=== PATIENT | male | born 1955 | race Caucasian/White ===

== ENCOUNTER → 2021-01-19 | Outpatient (CLI) | payer BC ==
--- NOTE | 2021-01-20 02:28 | MR ---
EXAMINATION TYPE: MR brain wo con DATE OF EXAM: 01/19/2021 COMPARISON: None HISTORY: Vertigo, Facial Numbness Multiplanar multiecho imaging of the brain without contrast. Ventricles have normal size. There is no mass effect nor midline shift. There is no sign of intracran ial hemorrhage. Diffusion images show no evidence of an acute infarct. Brainstem is intact. There is no evidence of orbital mass. Mixon-white matter structures have fairly n ormal signal pattern. There is no evidence of cerebral edema. There is no evidence of a posterior fos sa mass. Corpus callosum appears intact. Sella turcica appears normal. IMPRESSION: MR scan of the brain appears normal for age.
== END | disposition home or self-care (01) ==
LOC: RADMRIMAIN 20:27
PROVIDERS: ATTEND Family Medicine
DX: R42 Dizziness and giddiness (principal); R20.0 Anesthesia of skin
CPT/HCPCS: 70551

== ENCOUNTER 2022-10-23 18:32 | Emergency (ER) | payer BC ==
[2022-10-23 19:15] VITALS: RESP 18
--- NOTE | 2022-10-23 20:43 | ED ---
General Adult HPI - General Chief complaint: Extremity Injury, Upper Stated complaint: left arm injury Time Seen by Provider: 10/23/22 19:35 Source: patient, RN notes reviewed Mode of arrival: ambulatory Limitations: no limitations - History of Present Illness Initial comments: 67-year-old male presents emergency department chief complaint of left elbow swelling 1 day. He states that 5 weeks ago he fell on his elbow and had a similar thing happen. He underwent x-ray at that time which was negative. He reports that he had improvement in the swelling but he noticed it again today. He states that he has had no new injury. Denies fever, chills. He reports full range of motion at the elbow. - Related Data Allergies Allergy/AdvReac Type Severity Reaction Status Date / Time No Known Allergies Allergy Verified 10/23/22 19:15 Review of Systems ROS Statement: Those systems with pertinent positive or pertinent negative responses have been documented in the HPI. ROS Other: All systems not noted in ROS Statement are negative. Past Medical History Past Medical History: Hypertension History of Any Multi-Drug Resistant Organisms: None Reported Past Surgical History: Heart Catheterization With Stent Additional Past Surgical History / Comment(s): CABG Past Psychological History: No Psychological Hx Reported Smoking Status: Never smoker Past Alcohol Use History: None Reported Past Drug Use History: None Reported General Exam Limitations: no limitations General appearance: alert, in no apparent distress Head exam: Present: atraumatic, normocephalic, normal inspection Eye exam: Present: normal appearance ENT exam: Present: normal exam, mucous membranes moist Neck exam: Present: normal inspection. Absent: tenderness, meningismus, lymphadenopathy Respiratory exam: Present: normal lung sounds bilaterally. Absent: respiratory distress, wheezes, rales, rhonchi, stridor Cardiovascular Exam: Present: regular rate, normal rhythm, normal heart sounds. Absent: systolic murmur, diastolic murmur, rubs, gallop, clicks Extremities exam: Present: normal inspection, full ROM, normal capillary refill, other (bursal swelling of the left elbow without erythema or tenderness). A bsent: tenderness, pedal edema, joint swelling, calf tenderness Back exam: Present: normal inspection Neurological exam: Present: alert, oriented X3, CN II-XII intact Psychiatric exam: Present: normal affect, normal mood Skin exam: Present: warm, dry, intact, normal color. Absent: rash Course Vital Signs 10/23/22 10/23/22 19:11 20:52 Temperature 98.5 F 97.5 F L Pulse Rate 73 74 Respiratory 18 18 Rate Blood Pressure 119/70 128/75 O2 Sat by Pulse 99 99 Oximetry Medical Decision Making - Medical Decision Making Was pt. sent in by a medical professional or institution (, [facility], [facility], urgent care, hospital, or [facility]...) When possible be specific @ -No Did you speak to anyone other than the patient for history (EMS, parent, family, police, friend...)? What history was obtained from this source @ -No Did you review nursing and triage notes (agree or disagree)? Why? @ -I reviewed and agree with nursing and triage notes Were old charts reviewed (outside hosp., previous admission, EMS record, old EKG, old radiological studies, urgent care reports/EKG's, [facility] records)? Report findings @ -No old charts were reviewed Differential Diagnosis (chest pain, altered mental status, abdominal pain women, abdominal pain men, vaginal bleeding, weakness, fever, dyspnea, syncope, headache, dizziness, GI bleed, back pain, seizure, CVA, palpatations, mental health, musculoskeletal)? @ -Differential Musculoskeletal Muscular strain, contusion, ligament sprain, fracture, arthritis, septic arthritis, bursitis, cellulitis, muscle spasm, nerve compression, DVT, arterial occlusion, herpes zoster, electrolyte abnormality, tumor.... This is not meant to be in all inclusive list EKG interpreted by me (3pts min.). @ -None X-rays interpreted by me (1pt min.). @ -None done CT interpreted by me (1pt min.). @ -None done U/S interpreted by me (1pt. min.). @ -None done What testing was considered but not performed or refused? (CT, X-rays, U/S, labs)? Why? @ -XR considered but there has been no new trauma and clinical presentation consistent with bursitis What meds were considered but not given or refused? Why? @ -None Did you discuss the management of the patient with other professionals (professionals i.e. [facility] P[facility]ja, TA[facility], lab, RT, psych nurse, licensed clinical social worker, corporate fitness program coordinator, teacher, loan officer, case operator)? Give summary @ -No Was smoking cessation discussed for >3mins.? @ -No Was critical care preformed (if so, how long)? @ -No Were there social determinants of health that impacted care today? How? (Homelessness, low income, unemployed, alcoholism, drug addiction, transportation, low edu. Level, literacy, decrease access to med. care, custodial, rehab)? @ -No Was there de-escalation of care discussed even if they declined (Discuss DNR or withdrawal of care, Hospice)? DNR status @ -No What co-morbidities impacted this encounter? (DM, HTN, Smoking, COPD, CAD, Cancer, CVA, ARF, Chemo, Hep., AIDS, mental health diagnosis, sleep apnea, m orbid obesity)? @ -None Was patient admitted / discharged? Hospital course, mention meds given and route, prescriptions, significant lab abnormalities, going to OR and other pertinent info. @ -Discharged. Patient presented to emergency department chief complaint of left elbow swelling 1 day. Patient reports that he injured his elbow about 5 weeks ago and had x-rays taken at that time and has not had new trauma. He reports that his elbow swelled up this morning. Presentation consistent with bursitis, no erythema or tenderness, full ROM at the elbow. Recommended anti- inflammatories, icing. Discussed return precautions with patient and family in the room. Patient discharged in stable condition. Case discussed with my attending, Dr. Ayala. Undiagnosed new problem with uncertain prognosis? @ -No Drug Therapy requiring intensive monitoring for toxicity (Heparin, Nitro, Insul in, Cardizem)? @ -No Were any procedures done? @ -No Diagnosis/symptom? @ -olecranon bursitis Acute, or Chronic, or Acute on Chronic? @ -acute Uncomplicated (without systemic symptoms) or Complicated (systemic symptoms)? @ -uncomplicated Side effects of treatment? @ -No Exacerbation, Progression, or Severe Exacerbation? @ -No Poses a threat to life or bodily function? How? (Chest pain, [place], [place], pneumonia, PE, COPD, DKA, ARF, appy, cholecystitis, CVA, Diverticulitis, Homicidal, Suicidal, threat to staff... and all critical care pts) @ -No Disposition Clinical Impression: Bursitis Disposition: HOME SELF-CARE Condition: Stable Instructions (If sedation given, give patient instructions): Elbow Bursitis (ED) Additional Instructions: Follow up with your primary care provider. Please return to the emergency department for new or worsening symptoms. Is patient prescribed a controlled substance at d/c from ED?: No Referrals: Chrissy Santos DO [Primary Care Provider] - 1-2 days Time of Disposition: 20:43
[2022-10-23 20:57] VITALS: BP 128/75; PULSE 74; TEMP 97.5
== END 2022-10-23 20:57 | disposition home or self-care (01) ==
LOC: EC 18:32
DX: M71.9 Bursopathy, unspecified (principal); I10 Essential (primary) hypertension
CPT/HCPCS: 99282

== ENCOUNTER 2024-01-25 17:55 | Observation (INO) | payer BC, MEDICARE ==
--- NOTE | 2024-01-25 18:10 | ED ---
Dizziness HPI - General Source: patient, RN notes reviewed Mode of arrival: ambulatory Limitations: no limitations - History of Present Illness MD Complaint: dizziness <Ivory Christensen - Last Filed: 01/25/24 18:08> <Jia Nunes - Last Filed: 01/26/24 03:33> <SetswanaShy - Last Filed: 01/26/24 07:37> - General Chief Complaint: Dizziness Stated Complaint: Dizziness, SOB, Chest pain Time Seen by Provider: 01/25/24 18:05 - History of Present Illness Initial Comments: Quick Note: This is a 68-year-old male who presents to the emergency department for dizziness. States that he was ill with a sinus infection for the last couple of weeks and has recently started to become dizzy. Today he started to feel very weak and developed chest pain/pressure. He is concerned due to a history of open heart surgery and not knowing if this was a cardiac issue. Family states that he feels like he is constantly moving even when he is not. (Ivory Christensen) 68-year-old male with history of CAD presenting to the ER for chief complaint of dizziness x 1 day. States he has been ill with a sinus infection for 3 weeks and has been treated with multiple rounds of antibiotics with little relief. States he is having severe pressure under his eyes, headache, and dizziness worse with movement. Reports it feels as though the room is spinning. He has never had this before. He also reports when he got to the ER today he began having some chest pressure that he believes is likely due to anxiety. He is no longer having chest pain. He does take Brilinta. (Jia Nunes) - Related Data Home Medications Medication Instructions Recorded Confirmed Acetaminophen-Codeine 300-30mg 1 tab PO Q6H PRN 01/25/24 01/25/24 [Tylenol w/codeine #3] Albuterol Inhaler [Ventolin Hfa 2 puff INHALATION RT-Q4H PRN 01/25/24 01/25/24 Inhaler] Aspirin EC [Ecotrin Low Dose] 81 mg PO DAILY 01/25/24 01/25/24 Brimonidine Tartrate [Alphagan P 1 drop BOTH EYES BID 01/25/24 01/25/24 0.2% Ophth Soln] Brinzolamide/Brimonidine Tart 1 drop BOTH EYES BID 01/25/24 01/25/24 [Simbrinza 1%-0.2% Eye Drop] Codeine Phosphate/Guaifenesin 10 ml PO Q4H PRN 01/25/24 01/25/24 [Codeine Phosphate/Guaifenesin 10-100 mg/5 ml] Dicyclomine [Bentyl] 20 mg PO HS 01/25/24 01/25/24 Dutasteride 0.5 mg PO HS 01/25/24 01/25/24 Ezetimibe [Zetia] 10 mg PO DAILY 01/25/24 01/25/24 Fenofibrate [Lofibra] 160 mg PO HS 01/25/24 01/25/24 Fluticasone/Vilanterol [Breo 1 puff INHALATION RT-DAILY 01/25/24 01/25/24 Ellipta 100-25 Mcg Inhalr] Latanoprost [Latanoprost 0.005%] 1 drop BOTH EYES HS 01/25/24 01/25/24 Metoprolol Succinate [Metoprolol 25 mg PO HS 01/25/24 01/25/24 Succinate ER] Montelukast [Singulair] 10 mg PO HS 01/25/24 01/25/24 Omeprazole 40 mg PO DAILY 01/25/24 01/25/24 Ranolazine [Ranexa] 1,000 mg PO Q12HR 01/25/24 01/25/24 Rosuvastatin Calcium [Crestor] 40 mg PO HS 01/25/24 01/25/24 Tamsulosin [Flomax] 0.4 mg PO HS 01/25/24 01/25/24 Ticagrelor [Brilinta] 90 mg PO BID 01/25/24 01/25/24 Timolol 0.5% Ophth Soln [Timoptic 1 drop BOTH EYES DAILY 01/25/24 01/25/24 0.5% Ophth Soln] Ubidecarenone [Coenzyme Q10] 100 mg PO DAILY 01/25/24 01/25/24 clonazePAM 1.5 mg PO HS 01/25/24 01/25/24 lisinopriL [Zestril] 2.5 mg PO HS 01/25/24 01/25/24 traZODone HCL [Desyrel] 50 - 100 mg PO HS 01/25/24 01/25/24 Allergies Allergy/AdvReac Type Severity Reaction Status Date / Time No Known Allergies Allergy Verified 01/25/24 20:59 Review of Systems ROS Other: All systems not noted in ROS Statement are negative. <Ivory Christensen - Last Filed: 01/25/24 18:08> ROS Other: All systems not noted in ROS Statement are negative. <Jia Nunes - Last Filed: 01/26/24 03:33> ROS Other: All systems not noted in ROS Statement are negative. <SetswanaShy - Last Filed: 01/26/24 07:37> ROS Statement: Those systems with pertinent positive or pertinent negative responses have been documented in the HPI. Past Medical History Past Medical History: Asthma, COPD, Hypertension, Myocardial Infarction (non Q- wave) Additional Past Medical History / Comment(s): Open heart surgery History of Any Multi-Drug Resistant Organisms: None Reported Past Surgical History: Heart Catheterization With Stent Additional Past Surgical History / Comment(s): CABG Past Psychological History: No Psychological Hx Reported Smoking Status: Never smoker Past Alcohol Use History: None Reported Past Drug Use History: None Reported <Ivory Christensen - Last Filed: 01/25/24 18:08> General Exam Limitations: no limitations <Ivory Christensen - Last Filed: 01/25/24 18:08> General appearance: alert, in no apparent distress Head exam: Present: atraumatic, normocephalic, normal inspection Eye exam: Present: normal appearance, PERRL, EOMI. Absent: scleral icterus, conjunctival injection, periorbital swelling ENT exam: Present: normal exam, mucous membranes moist Neck exam: Present: normal inspection. Absent: tenderness, meningismus, lymphadenopathy Respiratory exam: Present: normal lung sounds bilaterally. Absent: respiratory distress, wheezes, rales, rhonchi, stridor Cardiovascular Exam: Present: regular rate, normal rhythm, normal heart sounds. Absent: systolic murmur, diastolic murmur, rubs, gallop, clicks GI/Abdominal exam: Present: soft, normal bowel sounds. Absent: distended, tenderness, guarding, rebound, rigid Neurological exam: Present: alert, oriented X3 Psychiatric exam: Present: normal affect, normal mood Skin exam: Present: warm, dry, intact, normal color. Absent: rash <Jia Nunes - Last Filed: 01/26/24 03:33> - General Exam Comments Initial Comments: Visual Physical Exam Vital signs reviewed General: Well-appearing, nontoxic, no acute distress. Head: Normocephalic, atraumatic Eyes: PERRLA, EOMI ENT: Airway patent Chest: Nonlabored breathing Skin: No visual rash, normal skin tone Neuro: Alert and oriented 3 Musculoskeletal: No gross abnormalities (Ivory Christensen) Course Vital Signs 01/25/24 01/25/24 01/25/24 18:04 20:58 21:47 Temperature 98.6 F 98.2 F Pulse Rate 58 L 52 L 55 L Respiratory 18 14 16 Rate Blood Pressure 104/65 126/70 131/75 O2 Sat by Pulse 100 Oximetry 01/26/24 03:24 Temperature 97.9 F Pulse Rate 55 L Respiratory 14 Rate Blood Pressure 104/69 O2 Sat by Pulse Oximetry EKG Findings - EKG Results: EKG: interpreted by ERMD (EKG reveals sinus bradycardia with no ST changes. Ventricular rate 57 bpm, KS interval 173, QRS duration 108, QT/QTc 451/445) <Jia Nunes - Last Filed: 01/26/24 03:33> Medical Decision Making <Ivory Christensen - Last Filed: 01/25/24 18:08> - Lab Data Result diagrams: 01/25/24 18:22 01/25/24 18:22 <Jia Nunes - Last Filed: 01/26/24 03:33> - Lab Data Result diagrams: 01/25/24 18:22 01/25/24 18:22 <Shy Rogesr - Last Filed: 01/26/24 07:37> - Medical Decision Making I performed the QuickNote portion of this chart. Signed Ivory Christensen PA-C. (Ivory Christensen) Was pt. sent in by a medical professional or institution ([facility], FORENSIC INVESTIGATOR, urgent care, hospital, or prison...) When possible be specific @ -No Did you speak to anyone other than the patient for history (EMS, parent, family, police, friend...)? What history was obtained from this source @ -Family supplemented history Did you review nursing and triage notes (agree or disagree)? Why? @ -I reviewed and agree with nursing and triage notes Were old charts reviewed (outside hosp., previous admission, EMS record, old EKG, old radiological studies, urgent care reports/EKG's, prison records)? Report findings @ -No old charts were reviewed Differential Diagnosis (chest pain, altered mental status, abdominal pain women, abdominal pain men, vaginal bleeding, weakness, fever, dyspnea, syncope, headache, dizziness, GI bleed, back pain, seizure, CVA, palpatations, mental health, musculoskeletal)? @ -Differential Dizziness: Benign paroxysmal positional Vertigo, Meniere's disease, otitis media, acoustic neuroma, vertebrobasilar insufficiency, cerebellar stroke, encephalitis, hypovolemic, arrhythmia, coronary artery syndrome, anemia, this is not meant to be an all-inclusive list EKG interpreted by me (3pts min.). @ -As above X-rays interpreted by me (1pt min.). @ -Chest x-ray reveals no acute process CT interpreted by me (1pt min.). @ -CT head without contrast revealed no acute intracranial process however basilar tip aneurysm not excluded, CTA revealed no acute process U/S interpreted by me (1pt. min.). @ -None done What testing was considered but not performed or refused? (CT, X-rays, U/S, labs)? Why? @ -None What meds were considered but not given or refused? Why? @ -Nitroglycerin was considered for chest pain however patient does take sildenafil Did you discuss the management of the patient with other professionals (professionals i.e. , PA, FORENSIC INVESTIGATOR, lab, RT, psych nurse, health social work professor, compound worker, teacher, commissioned fire officer, human services case manager)? Give summary @ -No Was smoking cessation discussed for >3mins.? @ -No Was critical care preformed (if so, how long)? @ -No Were there social determinants of health that impacted care today? How? (Homelessness, low income, unemployed, alcoholism, drug addiction, transport ation, low edu. Level, literacy, decrease access to med. care, intermediate, rehab)? @ -No Was there de-escalation of care discussed even if they declined (Discuss DNR or withdrawal of care, Hospice)? DNR status @ -No What co-morbidities impacted this encounter? (DM, HTN, Smoking, COPD, CAD, Cancer, CVA, ARF, Chemo, Hep., AIDS, mental health diagnosis, sleep apnea, morbid obesity)? @ -None Was patient admitted / discharged? Hospital course, mention meds given and route, prescriptions, significant lab abnormalities, going to OR and other pertinent info. @ -Patient was admitted. This is a 68-year-old male presenting with dizziness x 1 day with headache and chest pain. Vital signs within normal limits. Neuro examination is unremarkable. Patient was given IV fluids, antiemetics, and analgesics for symptom control. Lab work including CBC, CMP, coags, magnesium, troponin unremarkable. CT without contrast of head revealed questionable basilar tip aneurysm, therefore CTA was performed which revealed no acute process. Findings were discussed with patient. Upon reevaluation, patient states chest pain is worsening. Patient was given loading dose of aspirin at this time and was admitted to observation to rule out ACS due to chest pain with dizziness. Case was discussed with my ED attending Dr. Rogers. Undiagnosed new problem with uncertain prognosis? @ -No Drug Therapy requiring intensive monitoring for toxicity (Heparin, Nitro, Insulin, Cardizem)? @ -No Were any procedures done? @ -No Diagnosis/symptom? @ -Chest pain, dizziness Acute, or Chronic, or Acute on Chronic? @ -Acute Uncomplicated (without systemic symptoms) or Complicated (systemic symptoms)? @ -Complicated Side effects of treatment? @ -No Exacerbation, Progression, or Severe Exacerbation? @ -No Poses a threat to life or bodily function? How? (Chest pain, [place], [place], pneumonia, PE, COPD, DKA, ARF, appy, cholecystitis, CVA, Diverticulitis, Homicidal, Suicidal, threat to staff... and all critical care pts) @ -Yes, chest pain (Jia Nunes) Pt presented to myself by DOLORES. 68 y/o gentleman presenting for lightheadedness after suffering from a sinus infection x 5 weeks. Noted associated pressure behind his right eye. CT imaging obtained by D[facility]ES negative for acute process. While in ED pt began complaining of chest pain so planned for admission. I did go to assess the patient personally, and on my assessment, patient endorsed improvement in his lightheadedness but was more concerned about his left sided chest pain that began while in the ED and preferred to discuss this as opposed to initial presenting complaint. I reviewed initial EKG which showed no STEMI, initial troponin wnl, pt unable to recieve SL nitroglycerin as he takes Cialis, however morphine and repeat EKG ordered to ensure no new ischemic changes. Additionally, no focal deficits on neuro exam, no facial droop, slurred speech, weakness or numbness of extremities, EOM intact, visual rios grossly intact, right pupil 3-4 mm round, reactive, left pupil 2-3 mm, normal finger to nose testing, normal heel to garcia testing, no nystagmus, negative test of skew, head impulse test normal. Discussed with patient plan for admission for further evaluation of his chest pain, pt agreeable with POC. (Shy Rogers) - Lab Data Lab Results 01/25/24 01/25/24 01/25/24 Range/Units 18:22 18:22 18:22 WBC 4.1 (3.8-10.6) k/uL RBC 4.69 (4.30-5.90) m/uL Hgb 13.2 (13.0-17.5) gm/dL Hct 40.0 (39.0-53.0) % MCV 85.4 (80.0-100.0) fL MCH 28.1 (25.0-35.0) pg MCHC 32.9 (31.0-37.0) g/dL RDW 13.4 (11.5-15.5) % Plt Count 200 (150-450) k/uL MPV 7.4 Neutrophils % 66 % Lymphocytes % 22 % Monocytes % 8 % Eosinophils % 1 % Basophils % 1 % Neutrophils # 2.7 (1.3-7.7) k/uL Lymphocytes # 0.9 L (1.0-4.8) k/uL Monocytes # 0.3 (0-1.0) k/uL Eosinophils # 0.1 (0-0.7) k/uL Basophils # 0.0 (0-0.2) k/uL PT 11.8 (10.0-12.5) sec INR 1.1 (<1.2) APTT 27.3 (22.0-30.0) sec Sodium 128 L (137-145) mmol/L Potassium 4.1 (3.5-5.1) mmol/L Chloride 96 L (98-107) mmol/L Carbon Dioxide 25 (22-30) mmol/L Anion Gap 7 mmol/L BUN 13 (9-20) mg/dL Creatinine 1.05 (0.66-1.25) mg/dL Est GFR (CKD-EPI)AfAm 85 (>60 ml/min/1.73 sqM) Est GFR (CKD-EPI)NonAf 74 (>60 ml/min/1.73 sqM) Glucose 124 H (74-99) mg/dL Calcium 9.3 (8.4-10.2) mg/dL Magnesium 1.6 (1.6-2.3) mg/dL Total Bilirubin 0.6 (0.2-1.3) mg/dL AST 31 (17-59) U/L ALT 21 (4-49) U/L Alkaline Phosphatase 23 L (38-126) U/L Troponin I (0.000-0.034) ng/mL Total Protein 6.6 (6.3-8.2) g/dL Albumin 4.1 (3.5-5.0) g/dL Urine Color Urine Appearance (Clear) Urine pH (5.0-8.0) Ur Specific [place] (1.001-1.035) Urine Protein (Negative) Urine Glucose (UA) (Negative) Urine Ketones (Negative) Urine Blood (Negative) Urine Nitrite (Negative) Urine Bilirubin (Negative) Urine Urobilinogen (<2.0) mg/dL Ur Leukocyte Esterase (Negative) Influenza Type A (PCR) (Not Detectd) Influenza Type B (PCR) (Not Detectd) RSV (PCR) (Not Detectd) SARS-CoV-2 (PCR) (Not Detectd) 01/25/24 01/25/24 01/25/24 Range/Units 18:22 18:22 18:28 WBC (3.8-10.6) k/uL RBC (4.30-5.90) m/uL Hgb (13.0-17.5) gm/dL Hct (39.0-53.0) % MCV (80.0-100.0) fL MCH (25.0-35.0) pg MCHC (31.0-37.0) g/dL RDW (11.5-15.5) % Plt Count (150-450) k/uL MPV Neutrophils % % Lymphocytes % % Monocytes % % Eosinophils % % Basophils % % Neutrophils # (1.3-7.7) k/uL Lymphocytes # (1.0-4.8) k/uL Monocytes # (0-1.0) k/uL Eosinophils # (0-0.7) k/uL Basophils # (0-0.2) k/uL PT (10.0-12.5) sec INR (<1.2) APTT (22.0-30.0) sec Sodium (137-145) mmol/L Potassium (3.5-5.1) mmol/L Chloride (98-107) mmol/L Carbon Dioxide (22-30) mmol/L Anion Gap mmol/L BUN (9-20) mg/dL Creatinine (0.66-1.25) mg/dL Est GFR (CKD-EPI)AfAm (>60 ml/min/1.73 sqM) Est GFR (CKD-EPI)NonAf (>60 ml/min/1.73 sqM) Glucose (74-99) mg/dL Calcium (8.4-10.2) mg/dL Magnesium (1.6-2.3) mg/dL Total Bilirubin (0.2-1.3) mg/dL AST (17-59) U/L ALT (4-49) U/L Alkaline Phosphatase (38-126) U/L Troponin I <0.012 (0.000-0.034) ng/mL Total Protein (6.3-8.2) g/dL Albumin (3.5-5.0) g/dL Urine Color Light Yellow Urine Appearance Clear (Clear) Urine pH 6.0 (5.0-8.0) Ur Specific [place] 1.014 (1.001-1.035) Urine Protein Negative (Negative) Urine Glucose (UA) Negative (Negative) Urine Ketones Negative (Negative) Urine Blood Negative (Negative) Urine Nitrite Negative (Negative) Urine Bilirubin Negative (Negative) Urine Urobilinogen <2.0 (<2.0) mg/dL Ur Leukocyte Esterase Negative (Negative) Influenza Type A (PCR) Not Detected (Not Detectd) Influenza Type B (PCR) Not Detected (Not Detectd) RSV (PCR) Not Detected (Not Detectd) SARS-CoV-2 (PCR) Not Detected (Not Detectd) 01/26/24 Range/Units 02:00 WBC (3.8-10.6) k/uL RBC (4.30-5.90) m/uL Hgb (13.0-17.5) gm/dL Hct (39.0-53.0) % MCV (80.0-100.0) fL MCH (25.0-35.0) pg MCHC (31.0-37.0) g/dL RDW (11.5-15.5) % Plt Count (150-450) k/uL MPV Neutrophils % % Lymphocytes % % Monocytes % % Eosinophils % % Basophils % % Neutrophils # (1.3-7.7) k/uL Lymphocytes # (1.0-4.8) k/uL Monocytes # (0-1.0) k/uL Eosinophils # (0-0.7) k/uL Basophils # (0-0.2) k/uL PT (10.0-12.5) sec INR (<1.2) APTT (22.0-30.0) sec Sodium (137-145) mmol/L Potassium (3.5-5.1) mmol/L Chloride (98-107) mmol/L Carbon Dioxide (22-30) mmol/L Anion Gap mmol/L BUN (9-20) mg/dL Creatinine (0.66-1.25) mg/dL Est GFR (CKD-EPI)AfAm (>60 ml/min/1.73 sqM) Est GFR (CKD-EPI)NonAf (>60 ml/min/1.73 sqM) Glucose (74-99) mg/dL Calcium (8.4-10.2) mg/dL Magnesium (1.6-2.3) mg/dL Total Bilirubin (0.2-1.3) mg/dL AST (17-59) U/L ALT (4-49) U/L Alkaline Phosphatase (38-126) U/L Troponin I <0.012 (0.000-0.034) ng/mL Total Protein (6.3-8.2) g/dL Albumin (3.5-5.0) g/dL Urine Color Urine Appearance (Clear) Urine pH (5.0-8.0) Ur Specific [place] (1.001-1.035) Urine Protein (Negative) Urine Glucose (UA) (Negative) Urine Ketones (Negative) Urine Blood (Negative) Urine Nitrite (Negative) Urine Bilirubin (Negative) Urine Urobilinogen (<2.0) mg/dL Ur Leukocyte Esterase (Negative) Influenza Type A (PCR) (Not Detectd) Influenza Type B (PCR) (Not Detectd) RSV (PCR) (Not Detectd) SARS-CoV-2 (PCR) (Not Detectd) Disposition <Ivory Christensen - Last Filed: 01/25/24 18:08> Time of Disposition: 02:38 <Jia Nunes - Last Filed: 01/26/24 03:33> <Shy Rogers - Last Filed: 01/26/24 07:37> Clinical Impression: Chest pain Disposition: ADMITTED IP TO THIS HOSP
[2024-01-25 19:01] LABS: ALT 21 U/L (4-49); AST 31 U/L (17-59); African American GFR (CKD) 85 (>60 ml/min/1.73 sqM); Albumin 4.1 g/dL (3.5-5.0); Alkaline Phosphatase 23 U/L (38-126); Anion Gap 7 mmol/L; Blood Urea Nitrogen 13 mg/dL (9-20); Calcium 9.3 mg/dL (8.4-10.2); Carbon Dioxide 25 mmol/L (22-30); Chloride 96 mmol/L (98-107); Glucose 124 mg/dL (74-99); Magnesium 1.6 mg/dL (1.6-2.3); Non-African American GFR(CKD) 74 (>60 ml/min/1.73 sqM); Potassium 4.1 mmol/L (3.5-5.1); Sodium 128 mmol/L (137-145); Total Bilirubin 0.6 mg/dL (0.2-1.3); Total Protein 6.6 g/dL (6.3-8.2)
[2024-01-25 19:08] LABS: INR 1.1 (<1.2); Partial Thromboplastin Time 27.3 sec (22.0-30.0); Prothrombin Time 11.8 sec (10.0-12.5)
--- NOTE | 2024-01-25 19:09 | XR ---
EXAMINATION TYPE: XR chest 2V DATE OF EXAM: 01/25/2024 COMPARISON: 01/25/2024 INDICATION: Sinus infection TECHNIQUE: Frontal and lateral views of the chest are obtained. FINDINGS: The heart size is normal. Coronary artery stents are evident. Sternotomy wires are in the midline. The pulmonary vasculature is normal. The lungs are clear. IMPRESSION: 1. No acute pulmonary process. [facility], , 01/25/2024 7:06 PM
[2024-01-25] MEDS: ACETAMINOPHEN IV (For NPO) 1,000 MG in EMPTY BAG 1 BAG IVPB STA (20:43)
[2024-01-25] MEDS: ONDANSETRON 4 MG/2 ML VIAL IVP STA (20:44)
[2024-01-25] MEDS: SODIUM CHLORIDE 0.9% 1,000 ML IV STA (20:45)
--- NOTE | 2024-01-25 20:57 | CT ---
EXAMINATION TYPE: CT brain wo con DATE OF EXAM: 01/25/2024 COMPARISON: MRI 01/19/2021 INDICATION: Pt states he has had a sinus infection for the past few weeks that is not improving. pt states diziness has gotten worse. pt states he also feels lethargic and has pressure in chest. DLP: 1168.6 mGycm, Automated exposure control for dose reduction was used. CONTRAST: None CT of the brain is performed utilizing 3 mm thick sections through the posterior fossa and 3 mm thick sections through the remaining calvarium. Study is performed within 24 hours of arrival to the hosp ital. No abnormal hyperdensity is present to suggest an acute intracranial hemorrhage. No mass lesion is evident. No acute infarcts are evident. Ventricles and sulci are appropriate for the patient age. Paranasal sinuses and mastoid air cells within the [id number] are clear. In the axial plane there is some fullness of the basilar tip measuring 0.6 cm. The basilar artery its elf measures 0.4 cm. Aneurysm may be present. This is not identified on the previous MRI. This could be artifact given the lack of intravenous contrast study Additional workup with CTA or MRA is recomme nded. IMPRESSION: 1. No acute intracranial process. Follow up MRI can be performed as clinically indicated. 2. Basilar tip aneurysm is not excluded. Additional workup with CTA or MRA is recommended. [facility], , 01/25/2024 8:54 PM
[2024-01-25] MEDS: LORazepam 2 MG/ML INJ IV STA (21:43)
[2024-01-25 21:59] LABS: Appearance,Urine Clear (Clear); Bilirubin,Urine Negative (Negative); Blood,Urine Negative (Negative); Color,Urine Light Yellow; Glucose,Urine (UA) Negative (Negative); Ketones,Urine Negative (Negative); Leukocyte Esterase,Urine Negative (Negative); Nitrite,Urine Negative (Negative); Protein,Urine Negative (Negative); Specific Gravity,Urine 1.014 (1.001-1.035); Urobilinogen,Urine <2.0 mg/dL (<2.0)
[2024-01-25 22:02] LABS: Basophils % (A) 1 %; Eosinophils # (A) 0.1 k/uL (0-0.7); Eosinophils % (A) 1 %; HGB 13.2 gm/dL (13.0-17.5); Lymphocytes # (A) 0.9 k/uL (1.0-4.8); Lymphocytes % (A) 22 %; MCH 28.1 pg (25.0-35.0); MCHC 32.9 g/dL (31.0-37.0); MCV 85.4 fL (80.0-100.0); Mean Platelet Volume 7.4; Monocytes # (A) 0.3 k/uL (0-1.0); Monocytes % (A) 8 %; Neutrophils # (A) 2.7 k/uL (1.3-7.7); Neutrophils % (A) 66 %; Platelet Count 200 k/uL (150-450); RBC 4.69 m/uL (4.30-5.90); RDW 13.4 % (11.5-15.5); WBC 4.1 k/uL (3.8-10.6)
--- NOTE | 2024-01-25 22:51 | CT ---
EXAMINATION TYPE: CT angio head neck DATE OF EXAM: 01/25/2024 HISTORY: Pt states he has had a sinus infection for the past few weeks that is not improving. pt sta deonna dizziness has gotten worse. pt states he also feels lethargic and has pressure in chest. COMPARISON: None. CT DLP: 494 mGycm. Automated Exposure Control for Dose Reduction was Utilized. TECHNIQUE: CTA scan of the head and neck is performed with IV Contrast, patient injected with 100 ml mL of Isovue 370, axial images are obtained, coronal and sagittal reformatted images are reviewed. 3 D reconstructed images are created on an independent workstation and reviewed. FINDINGS: Carotid/Vascular Structures: There is three-vessel origin from the aortic arch. [id number] porfirio pheral calcified plaque right carotid bulb extends into proximal internal carotid artery without sign ificant stenosis. There is more moderate peripheral calcified plaque left carotid bulb extending into proximal internal carotid artery without significant stenosis. Patent external carotid arteries bila terally are seen. Moderate peripheral calcified plaque distal internal carotid arteries. Patent anter ior to indicating artery is seen. No linear hypodensity to suggest dissection. Vertebral arteries are codominant and patent to the basilar junction. Other: Sternal wires are partially imaged. Paranasal sinuses are grossly clear. Bilateral aphakia is seen. Multilevel spurring and disc space narrowing in the cervical spine. IMPRESSION: No significant vascular abnormality is seen. Cause of patient's symptoms is not identifi ed. NASCET criteria was used in interpretation of this exam? [facility], , 01/25/2024 10:48 PM
[2024-01-26] MEDS: LORazepam 2 MG/ML INJ IV STA (00:25)
[2024-01-26] MEDS: FAMOTIDINE 20 MG/2 ML VIAL IV STA (00:26)
[2024-01-26] MEDS: ASPIRIN 81 MG PO STA (00:27)
[2024-01-26] MEDS ORDERED: MAG HYDROX/AL HYDROX/SIMETH 30 ML CUP PO PRN (01:37)
[2024-01-26] MEDS: MORPHINE SULFATE 4 MG/ML SYRINGE IVP STA (02:00)
[2024-01-26] MEDS: ONDANSETRON 4 MG/2 ML VIAL IVP STA (02:01)
[2024-01-26] MEDS ORDERED: MORPHINE SULFATE 4 MG/ML SYRINGE IV PRN (02:35)
[2024-01-26] MEDS ORDERED: HYDROcodone/APAP 5-325MG 1 EACH TAB PO PRN (02:35)
[2024-01-26] MEDS ORDERED: ONDANSETRON 4 MG/2 ML VIAL IVP PRN (02:35)
[2024-01-26] MEDS ORDERED: NALOXONE 0.4 MG/ML 1 ML VIAL IV PRN (02:35)
[2024-01-26] MEDS ORDERED: LORazepam 0.5 MG TAB PO PRN (02:35)
[2024-01-26 04:48] LABS: Glucose,Whole Blood 156 mg/dL (70-110)
[2024-01-26] MEDS ORDERED: ALBUTEROL NEBULIZED 2.5 MG/3 ML INHALATION PRN (07:17)
[2024-01-26] MEDS ORDERED: BRIMONIDINE TARTRATE 0.2% DROPS 5 ML BTL BOTH EYES SCH (09:00)
[2024-01-26] MEDS: EZETIMIBE 10 MG TAB PO SCH (09:11)
[2024-01-26] MEDS: ACETAMINOPHEN TAB 325 MG TAB PO PRN (09:12)
[2024-01-26] MEDS: RANOLAZINE 500 MG TAB.ER.12H PO SCH (09:13)
[2024-01-26] MEDS: SYMBICORT 80-4.5 MCG INHALER INHALATION SCH (09:46)
[2024-01-26] MEDS: ASPIRIN 81 MG PO SCH (10:02)
[2024-01-26] MEDS: TICAGRELOR 90 MG TAB PO SCH (10:02)
[2024-01-26] MEDS: DORZOLAMIDE HCL 2% DROPS 10 ML BTL BOTH EYES SCH (10:04)
[2024-01-26] MEDS: TIMOLOL 0.5% OPHTH DROPS 5 ML BTL BOTH EYES SCH (10:05)
[2024-01-26] MEDS: BRIMONIDINE TARTRATE 0.2% DROPS 5 ML BTL BOTH EYES SCH (11:14)
[2024-01-26] MEDS: LORazepam 2 MG/ML INJ IV PRN (12:17)
--- NOTE | 2024-01-26 12:27 | P.CRDCN ---
History of Present Illness Consult date: 01/26/24 Consult reason: chest pain History of present illness: This is Bon Davis NP, I'm dictating on behalf of Dr. Robbins's H&P and A&P The patient was interviewed and examined. HPI: Patient is a pleasant 68-year-old male with a past medical history that includes coronary artery disease with bypass grafting 4 years ago, asthma, COPD, hypertension, who presents to the hospital with complaints of dizziness. Patient reports that has been dealing with a sinus infection for the last 5 weeks, and over the course of the past week began to experience increasing symptomatology. He reports that yesterday he started having significant pain and pressure behind his right eye, to the point where it was intolerable. This is what prompted him to present to the emergency department. He reports in the emergency department he began to experience pain in his left eye as well. He then had subsequent pain under his left armpit. He states this pain lasted for some hours, and he states that no one would address the left chest pain at that time. Patient did undergo an EKG which showed sinus bradycardia with no signs of ACS. Patient has had troponin levels checked x 3 and has had no elevations. He was subsequently admitted for cardiology consultation to rule out ACS. Patient this morning reports a sensation of the chest discomfort on the left side. He continues to experience discomfort in his face and behind his eyes secondary to his infection. ROS: [No fever, chills, or rigors] [no cough, phlegm, or expectoration] [no nausea, vomiting, or diarrhea] [no hematuria, dysuria] [no musculoskelatal complaints] [no strokes or seizures] [no skin lesions] EXAMINATION: GENERAL: Well-appearing, well-nourished and in no acute distress. NECK: Supple without JVD or thyromegaly. LUNGS: Breath sounds clear to auscultation bilaterally. Respiration equal and unlabored. No wheezes, rales or rhonchi. HEART: Regular rate and rhythm without murmurs, rubs or gallops. S1 and S2 heard. EXTREMITIES: Normal range of motion, no edema. No clubbing or cyanosis. Peripheral pulses intact and strong. REVIEW OF LABS, ECG & MEDICAL DATA: LABS: White count 4.1, hemoglobin 13.2, platelets 200, sodium 128, potassium 4.1, BUN 13, creatinine 1.05, magnesium 1.6, troponin x 3-less than 0.012 EKG: Sinus bradycardia, heart rate 56 IMAGING: Chest x-ray dated 01/25/2024 demonstrates no acute pulmonary process. CT of the brain without contrast dated 01/25/2024 demonstrates no acute intracranial process, follow-up MRI can be performed as clinically indicated, basilar tip aneurysm is not excluded, additional workup with CTA or MRA is recommended. CT angiogram of the head and neck dated 01/25/2024 demonstrates no significant vascular abnormality is seen, because of patient's symptoms is not identified. VITALS: Temp 98.4, pulse 50, respirations 15, blood pressure 101/62, O2 saturation 90% on room air IMPRESSION: 1. Atypical chest pain 2. Facial pain of undetermined origin 3. History of coronary artery bypass grafting 4 years ago 4. Hypertension 5. COPD PLAN: EKG and troponins do not indicate acute coronary syndrome. Patient has not had an [place]. CT angio as well as CT with and without contrast of the head does not demonstrate even acute sinusitis. Due to complaints of eye pain, patient should be worked up for glaucoma. Likely etiology of patient's unrelated left armpit pain is likely secondary to anxiety. No further recommendations from a cardiology standpoint. Thank you for the consult and allowing us to participate in the care of this patient. Past Medical History Past Medical History: Asthma, COPD, Hypertension, Myocardial Infarction (non Q- wave) Additional Past Medical History / Comment(s): Open heart surgery Last Myocardial Infarction Date:: 2000 History of Any Multi-Drug Resistant Organisms: None Reported Past Surgical History: Heart Catheterization With Stent Additional Past Surgical History / Comment(s): CABG Date of Last Stent Placement:: 2019 Past Psychological History: No Psychological Hx Reported Smoking Status: Never smoker Past Alcohol Use History: None Reported Past Drug Use History: None Reported Medications and Allergies Home Medications Medication Instructions Recorded Confirmed Type Acetaminophen-Codeine 300-30mg 1 tab PO Q6H PRN 01/25/24 01/25/24 History [Tylenol w/codeine #3] Albuterol Inhaler [Ventolin Hfa 2 puff INHALATION RT-Q4H PRN 01/25/24 01/25/24 History Inhaler] Aspirin EC [Ecotrin Low Dose] 81 mg PO DAILY 01/25/24 01/25/24 History Brimonidine Tartrate [Alphagan P 1 drop BOTH EYES BID 01/25/24 01/25/24 History 0.2% Ophth Soln] Brinzolamide/Brimonidine Tart 1 drop BOTH EYES BID 01/25/24 01/25/24 History [Simbrinza 1%-0.2% Eye Drop] Codeine Phosphate/Guaifenesin 10 ml PO Q4H PRN 01/25/24 01/25/24 History [Codeine Phosphate/Guaifenesin 10-100 mg/5 ml] Dicyclomine [Bentyl] 20 mg PO HS 01/25/24 01/25/24 History Dutasteride 0.5 mg PO HS 01/25/24 01/25/24 History Ezetimibe [Zetia] 10 mg PO DAILY 01/25/24 01/25/24 History Fenofibrate [Lofibra] 160 mg PO HS 01/25/24 01/25/24 History Fluticasone/Vilanterol [Breo 1 puff INHALATION RT-DAILY 01/25/24 01/25/24 History Ellipta 100-25 Mcg Inhalr] Latanoprost [Latanoprost 0.005%] 1 drop BOTH EYES HS 01/25/24 01/25/24 History Metoprolol Succinate [Metoprolol 25 mg PO HS 01/25/24 01/25/24 History Succinate ER] Montelukast [Singulair] 10 mg PO HS 01/25/24 01/25/24 History Omeprazole 40 mg PO DAILY 01/25/24 01/25/24 History Ranolazine [Ranexa] 1,000 mg PO Q12HR 01/25/24 01/25/24 History Rosuvastatin Calcium [Crestor] 40 mg PO HS 01/25/24 01/25/24 History Tamsulosin [Flomax] 0.4 mg PO HS 01/25/24 01/25/24 History Ticagrelor [Brilinta] 90 mg PO BID 01/25/24 01/25/24 History Timolol 0.5% Ophth Soln [Timoptic 1 drop BOTH EYES DAILY 01/25/24 01/25/24 History 0.5% Ophth Soln] Ubidecarenone [Coenzyme Q10] 100 mg PO DAILY 01/25/24 01/25/24 History clonazePAM 1.5 mg PO HS 01/25/24 01/25/24 History lisinopriL [Zestril] 2.5 mg PO HS 01/25/24 01/25/24 History traZODone HCL [Desyrel] 50 - 100 mg PO HS 01/25/24 01/25/24 History Allergies Allergy/AdvReac Type Severity Reaction Status Date / Time No Known Allergies Allergy Verified 01/25/24 20:59 Physical Exam Vitals: Vital Signs Temp Pulse Pulse Pulse Resp BP BP 01/26/24 09:47 01/26/24 07:45 98.4 F 50 L 15 101/62 01/26/24 04:30 97.7 F 50 L 16 102/62 01/26/24 03:24 97.9 F 55 L 14 104/69 01/25/24 21:47 55 L 16 131/75 01/25/24 20:58 98.2 F 52 L 14 126/70 01/25/24 18:04 98.6 F 58 L 18 104/65 Pulse Ox 01/26/24 09:47 100 01/26/24 07:45 98 01/26/24 04:30 99 01/26/24 03:24 01/25/24 21:47 01/25/24 20:58 01/25/24 18:04 100 Intake and Output 01/25/24 01/26/24 01/26/24 22:59 06:59 14:59 Intake Total 0 118 Balance 0 118 Intake: Oral 0 118 Other: # Voids 1 Weight 68.039 kg 68.039 kg Results 01/25/24 18:22 01/25/24 18:22 Cardiac Enzymes 01/25/24 01/25/24 01/26/24 Range/Units 18:22 18:22 02:00 AST 31 (17-59) U/L Troponin I <0.012 <0.012 (0.000-0.034) ng/mL 01/26/24 Range/Units 07:42 AST (17-59) U/L Troponin I <0.012 (0.000-0.034) ng/mL Coagulation 01/25/24 Range/Units 18:22 PT 11.8 (10.0-12.5) sec APTT 27.3 (22.0-30.0) sec CBC 01/25/24 Range/Units 18:22 WBC 4.1 (3.8-10.6) k/uL RBC 4.69 (4.30-5.90) m/uL Hgb 13.2 (13.0-17.5) gm/dL Hct 40.0 (39.0-53.0) % Plt Count 200 (150-450) k/uL Comprehensive Metabolic Panel 01/25/24 Range/Units 18:22 Sodium 128 L (137-145) mmol/L Potassium 4.1 (3.5-5.1) mmol/L Chloride 96 L (98-107) mmol/L Carbon Dioxide 25 (22-30) mmol/L BUN 13 (9-20) mg/dL Creatinine 1.05 (0.66-1.25) mg/dL Glucose 124 H (74-99) mg/dL Calcium 9.3 (8.4-10.2) mg/dL AST 31 (17-59) U/L ALT 21 (4-49) U/L Alkaline Phosphatase 23 L (38-126) U/L Total Protein 6.6 (6.3-8.2) g/dL Albumin 4.1 (3.5-5.0) g/dL Current Medications Generic Name Dose Route Start Last Admin Trade Name Freq PRN Reason Stop Dose Admin Acetaminophen 650 mg 01/26/24 02:35 01/26/24 09:12 Acetaminophen Tab 325 Mg Tab PO 650 mg Q6HR PRN Administration Mild Pain or Fever > 100.5 Hydrocodone Bitart/Acetaminophen 1 each 01/26/24 02:35 Hydrocodone/Apap 5-325mg 1 Each Tab PO Q4HR PRN Moderate Pain (Scale 4 to 6) Al Hydroxide/Mg Hydroxide 30 ml 01/26/24 01:37 Mag Hydrox/Al Hydrox/Simeth 30 Ml Cup PO Q4HR PRN GI Upset Albuterol Sulfate 2.5 mg 01/26/24 07:17 Albuterol Nebulized 2.5 Mg/3 Ml INHALATION RT-Q4H PRN cough/wheezing Aspirin 81 mg 01/26/24 09:00 01/26/24 10:02 Aspirin 81 Mg PO 81 mg DAILY LORRAINE Administration Atorvastatin Calcium 80 mg 01/26/24 21:00 Atorvastatin 80 Mg Tab PO HS LORRAINE Brimonidine Tartrate 1 drops 01/26/24 09:00 01/26/24 11:14 Brimonidine Tartrate 0.2% Drops 5 Ml Btl BOTH EYES 1 drops BID LORRAINE Administration Budesonide/Formoterol Fumarate 2 puff 01/26/24 08:00 01/26/24 09:46 Symbicort 80-4.5 Mcg Inhaler INHALATION 2 puff RT-BID LORRAINE Administration Clonazepam 1.5 mg 01/26/24 21:00 Clonazepam 0.5 Mg Tab PO HS LORRAINE Dicyclomine HCl 20 mg 01/26/24 21:00 Dicyclomine 20 Mg Tab PO HS LORRAINE Dorzolamide HCl 1 drops 01/26/24 09:00 01/26/24 10:04 Dorzolamide Hcl 2% Drops 10 Ml Btl BOTH EYES 1 drops BID LORRAINE Administration Ezetimibe 10 mg 01/26/24 09:00 01/26/24 09:11 Ezetimibe 10 Mg Tab PO 10 mg DAILY LORRAINE Administration Fenofibrate 160 mg 01/26/24 21:00 Fenofibrate 160 Mg Tab PO HS LORRAINE Finasteride 5 mg 01/26/24 21:00 Finasteride 5 Mg Tab PO HS LORRAINE Latanoprost 1 drops 01/26/24 21:00 Latanoprost 0.005% Ophth Drops 2.5 Ml Btl BOTH EYES HS LORRAINE Lisinopril 2.5 mg 01/26/24 21:00 Lisinopril 2.5 Mg Tab PO HS LORRAINE Lorazepam 0.5 mg 01/26/24 10:50 01/26/24 12:17 Lorazepam 2 Mg/Ml Inj IV 0.5 mg ONCE PRN Administration Anxiety Metoprolol Succinate 25 mg 01/26/24 21:00 Metoprolol Succinate (Er) 25 Mg Tab.Er.24h PO HS LORRAINE Montelukast Sodium 10 mg 01/26/24 21:00 Montelukast 10 Mg Tab PO HS OLRRAINE Morphine Sulfate 4 mg 01/26/24 02:35 Morphine Sulfate 4 Mg/Ml Syringe IV Q4HR PRN Severe Pain (Scale 7 to 10) Naloxone HCl 0.2 mg 01/26/24 02:35 Naloxone 0.4 Mg/Ml 1 Ml Vial IV Q2M PRN Opioid Reversal Ondansetron HCl 4 mg 01/26/24 02:35 Ondansetron 4 Mg/2 Ml Vial IVP Q8HR PRN Nausea And Vomiting Ranolazine 1,000 mg 01/26/24 09:00 01/26/24 09:13 Ranolazine 500 Mg Tab.Er.12h PO 1,000 mg Q12HR LORRAINE Administration Tamsulosin HCl 0.4 mg 01/26/24 21:00 Tamsulosin 0.4 Mg Cap.Er.24h PO HS LORRAINE Ticagrelor 90 mg 01/26/24 09:00 01/26/24 10:02 Ticagrelor 90 Mg Tab PO 90 mg BID LORRAINE Administration Timolol Maleate 1 drops 01/26/24 09:00 01/26/24 10:05 Timolol 0.5% Ophth Drops 5 Ml Btl BOTH EYES 1 drops DAILY LORRAINE Administration Trazodone HCl 62.5 mg 01/26/24 21:00 Trazodone Hcl 50 Mg Tab PO HS LORRAINE Intake and Output 01/25/24 01/26/24 01/26/24 22:59 06:59 14:59 Intake Total 0 118 Balance 0 118 Intake: Oral 0 118 Other: # Voids 1 Weight 68.039 kg 68.039 kg 01/25/24 18:22 01/25/24 18:22
--- NOTE | 2024-01-26 13:50 | P.CNNES ---
History of Present Illness Consult date: 01/26/24 Requesting physician: Neva Valle Reason for Consult: Dizziness and headache for a week, left pupil enlargement History of Present Illness: This is a telemedicine neurology consultation performed on patient, today on 01/26/2024 in assistance with Moon Clifford. Patient is a 68-year-old right-handed male with history of CAD, hyperlipidemia came to the hospital yesterday at 5:55 PM for eye pain. Patient states that his symptoms started on 01/21/2024 with pain "behind the right eye muscle". It was subtle in the beginning. Yesterday during the midday, the pain became very intense, and it was so bad that he got dizzy, lightheaded, couldn't walk. He has to keep his eyes closed. He is very photophobic. Yesterday evening his left eye was hurting as well. After he has received pain medication today, the pain in the left eye has resolved, but continues to have throbbing pain in the right eye. Also feels tenderness in the right eye. He does have history of glaucoma for 20 years, for which he follows up with bioengineer every 6 months. The last time he was seen by bioengineer was in August 2023, and he claims that the pressure has been maintained for years. He claims that he has significantly restricted peripheral visual rios bilaterally, and has not got worse since all the symptoms started. He does have pain in both temples. He denies any jaw claudication, any weight loss or fever. Denies any previous history of headaches or migraines. No head injury. No history of stroke or TIA. Even at present he denies any stroke symptoms like focal numbness, tingling, slurred speech facial droop, loss of vision. Vital signs on arrival blood pressure 104/65, pulse rate 58, temperature 98.6. Blood test shows normal CBC, PT/PTT. Sodium 128 potassium 4.1, renal functions, hepatic panel are normal. Troponin negative. UA negative. Influenza, RSD and coronal virus PCR negative. CT head showed no acute intracranial process. Follow-up MRI can be performed as clinically indicated. Basilar tip aneurysm is not excluded. Additional workup with CTA or MRA results recommended. I personally reviewed CT head, agree with the findings. CTA of head and neck revealed no significant vascular abnormality. Chest x-ray showed no acute cardiac process. EKG showed sinus bradycardia at 57. Home medications include lisinopril, metoprolol, Zetia, Singulair, Crestor 40 mg Ranexa, trazodone 50-100 mg, omeprazole, fenofibrate 160 mg at bedtime. Emperatriz 90 mg twice a day, Flomax, aspirin 81 mg. Patient smokes cigar daily, all day for last 50 years. Denies any alcohol use, no drugs or marijuana. Review of Systems All pertinent positive and negatives mentioned in HPI. Otherwise unremarkable. Denies any chest pain shortness of breath, nausea vomiting diarrhea. Past Medical History Past Medical History: Asthma, COPD, Hypertension, Myocardial Infarction (non Q- wave) Additional Past Medical History / Comment(s): Open heart surgery Last Myocardial Infarction Date:: 2000 History of Any Multi-Drug Resistant Organisms: None Reported Past Surgical History: Heart Catheterization With Stent Additional Past Surgical History / Comment(s): CABG Date of Last Stent Placement:: 2019 Past Psychological History: No Psychological Hx Reported Smoking Status: Never smoker Past Alcohol Use History: None Reported Past Drug Use History: None Reported Medications and Allergies Home Medications Medication Instructions Recorded Confirmed Type Acetaminophen-Codeine 300-30mg 1 tab PO Q6H PRN 01/25/24 01/25/24 History [Tylenol w/codeine #3] Albuterol Inhaler [Ventolin Hfa 2 puff INHALATION RT-Q4H PRN 01/25/24 01/25/24 History Inhaler] Aspirin EC [Ecotrin Low Dose] 81 mg PO DAILY 01/25/24 01/25/24 History Brimonidine Tartrate [Alphagan P 1 drop BOTH EYES BID 01/25/24 01/25/24 History 0.2% Ophth Soln] Brinzolamide/Brimonidine Tart 1 drop BOTH EYES BID 01/25/24 01/25/24 History [Simbrinza 1%-0.2% Eye Drop] Codeine Phosphate/Guaifenesin 10 ml PO Q4H PRN 01/25/24 01/25/24 History [Codeine Phosphate/Guaifenesin 10-100 mg/5 ml] Dicyclomine [Bentyl] 20 mg PO HS 01/25/24 01/25/24 History Dutasteride 0.5 mg PO HS 01/25/24 01/25/24 History Ezetimibe [Zetia] 10 mg PO DAILY 01/25/24 01/25/24 History Fenofibrate [Lofibra] 160 mg PO HS 01/25/24 01/25/24 History Fluticasone/Vilanterol [Breo 1 puff INHALATION RT-DAILY 01/25/24 01/25/24 History Ellipta 100-25 Mcg Inhalr] Latanoprost [Latanoprost 0.005%] 1 drop BOTH EYES HS 01/25/24 01/25/24 History Metoprolol Succinate [Metoprolol 25 mg PO HS 01/25/24 01/25/24 History Succinate ER] Montelukast [Singulair] 10 mg PO HS 01/25/24 01/25/24 History Omeprazole 40 mg PO DAILY 01/25/24 01/25/24 History Ranolazine [Ranexa] 1,000 mg PO Q12HR 01/25/24 01/25/24 History Rosuvastatin Calcium [Crestor] 40 mg PO HS 01/25/24 01/25/24 History Tamsulosin [Flomax] 0.4 mg PO HS 01/25/24 01/25/24 History Ticagrelor [Brilinta] 90 mg PO BID 01/25/24 01/25/24 History Timolol 0.5% Ophth Soln [Timoptic 1 drop BOTH EYES DAILY 01/25/24 01/25/24 History 0.5% Ophth Soln] Ubidecarenone [Coenzyme Q10] 100 mg PO DAILY 01/25/24 01/25/24 History clonazePAM 1.5 mg PO HS 01/25/24 01/25/24 History lisinopriL [Zestril] 2.5 mg PO HS 01/25/24 01/25/24 History traZODone HCL [Desyrel] 50 - 100 mg PO HS 01/25/24 01/25/24 History Allergies Allergy/AdvReac Type Severity Reaction Status Date / Time No Known Allergies Allergy Verified 01/25/24 20:59 Physical Examination - Vital Signs Vital Signs: Vital Signs Temp Pulse Pulse Pulse Resp BP BP 01/26/24 09:47 01/26/24 07:45 98.4 F 50 L 15 101/62 01/26/24 04:30 97.7 F 50 L 16 102/62 01/26/24 03:24 97.9 F 55 L 14 104/69 01/25/24 21:47 55 L 16 131/75 01/25/24 20:58 98.2 F 52 L 14 126/70 01/25/24 18:04 98.6 F 58 L 18 104/65 Pulse Ox 01/26/24 09:47 100 01/26/24 07:45 98 01/26/24 04:30 99 01/26/24 03:24 01/25/24 21:47 01/25/24 20:58 01/25/24 18:04 100 Intake and Output 01/25/24 01/26/24 01/26/24 22:59 06:59 14:59 Intake Total 0 118 Balance 0 118 Intake: Oral 0 118 Other: # Voids 1 Weight 68.039 kg 68.039 kg Patient is an elderly male, in no acute distress. Patient is slightly irritable, slightly frustrated because of the pain. He did not want to give history because he has already been telling into multiple other physicians. Patient is alert awake oriented to time place and person. Speech and language functions are normal. Patient can name and repeat very well. No aphasia or dysarthria. Attention, concentration and fund of knowledge is adequate. On cranial nerve examination, right pupil is about 3 mm, reactive to light. Left pupil is surgical, tear shaped, irregular, 5 mm, nonreactive. His visual rios showed questionable restriction peripherally, which is baseline, not any worse lately. Extraocular muscles are intact with no nystagmus. Face is symmetric, tongue protrudes to the midline. Palatal elevation and sensation normal, hearing and shoulder shrug normal, facial sensation normal. On muscle strength testing, there is no pronator drift and the strength is normal in arms and legs distally and proximally. Deep tendon reflexes are symmetric 1 at the biceps, trace at the knees, plantars downgoing bilaterally. Sensory to touch is equal with no neglect on double simultaneous stimulation. Cerebellar function showed no ataxia for [id number] testing. No dysdiadochokinesia. No ataxia for [id number] testing on either side. Tone and bulk of muscles normal. Gait deferred.. On general examination, there is no carotid bruit or murmur, S1-S2 audible. Chest is clear on consultation. Abdomen is soft nontender. No organomegaly, bowel sounds present. Peripheral pulses are present. No peripheral edema. Results - Laboratory Findings CBC and BMP: 01/25/24 18:22 01/25/24 18:22 Abnormal Lab Findings: Abnormal Labs 01/25/24 01/25/24 01/26/24 18:22 18:22 04:46 Lymphocytes # 0.9 L Sodium 128 L Chloride 96 L Glucose 124 H POC Glucose (mg/dL) 156 H Alkaline Phosphatase 23 L Assessment and Plan Assessment: * New onset retro-orbital, and temporal pain on the right side, unclear cause. Rule out worsening of glaucoma, rule out temporal arteritis. * History of bilateral glaucoma. * History of CAD * Hypertension * Hyperlipidemia * Smokes cigar daily Plan: * MRI of the orbits with and without contrast rule out any structural abnormality. * ESR, CRP, hemoglobin A1c, fasting lipid panel * Ophthalmology consultation rule out ocular cause of pain, rule out worsening of glaucoma. * CTA of head and neck revealed no significant vascular abnormality. No aneurysm reported. * Pain control as per IM. * Neurology will follow. Thank you for the consult.
--- NOTE | 2024-01-26 14:19 | MR ---
EXAMINATION TYPE: MR orbits wo/w con DATE OF EXAM: 01/26/2024 1:54 PM CLINICAL INDICATION: Male, 68 years old with history of Eye pain; PHH, Bilateral eye pain. COMPARISON: 01/19/2021. CT 01/25/2024 TECHNIQUE: Multi planar, multi sequence imaging was performed through the orbits/face. Post contrast imaging was performed after the administration of 7 cc of Gadavist intravenously. FINDINGS, ORBITS: The globes appear symmetrical. Bilateral aphakia. Signal intensity of the optic ne rves are within normal limits. The intraorbital fat appears preserved. Both lacrimal glands are unr emarkable. The extraocular muscles appear symmetric. After administration of contrast, no abnormal en hancement is seen. The bone marrow signal is within normal limits. Paranasal sinuses and mastoid air cells: No significant paranasal sinus disease. Visualized orbits: Orbital contents are intact Basilar tip is poorly visualized on this non-MRA exam. IMPRESSION: No evidence of intraorbital mass or significant abnormality [facility], , 01/26/2024 2:16 PM
[2024-01-26 14:37] VITALS: BP 107/64; PULSE 65; RESP 18; TEMP 98.3
--- NOTE | 2024-01-26 15:32 | P.HPIM ---
History of Present Illness H&P Date: 01/26/24 Patient is 68-year-old male with a past medical history of hypertension, glaucoma, hyperlipidemia, and recent sinus infection. He states that about 5 weeks ago he developed a sinus infection and has been on and off antibiotics with no relief. He states that over the past week he has had pain behind his right eye and yesterday the pain became extremely strong and progressed into the left eye as well. He also notes that yesterday 01/24 after breakfast he started feeling dehydrated and lightheaded/dizzy. After few hours he decided to come to the emergency department. He states that prior to breakfast he had taken Cialis and is not sure if that contributed to it since he has taken in the past. He endorses a spinning feeling while sitting still. While in the emergency he says he started having chest pain into the left armpit. EKGs were noted to have sinus bradycardia and troponin x 2 was <0.012. Chest x-ray: No acute pulmonary process. Brain CT: No acute intracranial process, basilar tip aneurysm not excluded. CT angiogram head and neck: No significant vascular abnormality. EKG x 2: Sinus bradycardia. WBCs 4.1, hemoglobin 13.2, sodium 128, potassium 4.1, creatinine 1.05, troponin x 2 < 0.012. Urinalysis unremarkable. Afebrile, normotensive/mildly hypotensive with systolic [id number], bradycardic in the 50s, saturating well on room air. ED documentation reviewed. Review of systems: Pertinent positives and negatives as discussed in HPI, a complete review of systems was performed and all other systems are negative. Social history: Tobacco: Cigars daily Alcohol: Denies Recreational drugs: Denies Travel: Denies Physical examination: Vital signs are reviewed. General: No acute distress. AOx4. Holding hand over right eye. Keeps eyes closed during most of interview. HEENT: Head exam is unremarkable. EOMI bilaterally. ACs patent. Nares patent. Lungs: Bilateral breath sounds present; no rhonchi, wheezes, or rales. Heart: Rate and rhythm are regular. S1-S2 present. No murmur/rub/gallops. Abdomen: Soft, nontender, nondistended. Bowel sounds present. Extremities: No edema present. Symmetric movement. Psych: Normal affect and mood. Cooperative. Assessment/Plan: New onset retro-orbital/temporal right-sided pain Brain MRI Continue pain medications as needed Neurology consulted: MRI of the orbits, ESR, CRP, hemoglobin A1c, fasting lipid, ophthalmology consultation Chest pain, resolved Cardiology consulted: EKG and troponins not indicative of acute coronary syndrome Hypertension Continue home medications Hyperlipidemia Continue home medications Anxiety Continue clonazepam Dizziness, resolved Glaucoma Continue home medications DVT prophylaxis: Mechanical Chronic conditions: Hypertension, CABG November 2000, history of myocardial infarction, COPD, asthma, heart catheterization with stent 2019, glaucoma The patient is admitted with an anticipated less than than 2 midnight stay for evaluation of dizziness and chest pain. CODE STATUS: Full code Discussed with: Patient Anticipated discharge place: Home Attestation I have seen and examined this patient with my resident , discussed the same with the resident/DOLORES, and agree with the dictator's assessment and plan as written Dr. Anton knapp Past Medical History Past Medical History: Asthma, COPD, Hypertension, Myocardial Infarction (non Q- wave) Additional Past Medical History / Comment(s): Open heart surgery Last Myocardial Infarction Date:: 2000 History of Any Multi-Drug Resistant Organisms: None Reported Past Surgical History: Heart Catheterization With Stent Additional Past Surgical History / Comment(s): CABG Date of Last Stent Placement:: 2019 Past Psychological History: No Psychological Hx Reported Smoking Status: Never smoker Past Alcohol Use History: None Reported Past Drug Use History: None Reported Medications and Allergies Home Medications Medication Instructions Recorded Confirmed Type Acetaminophen-Codeine 300-30mg 1 tab PO Q6H PRN 01/25/24 01/25/24 History [Tylenol w/codeine #3] Albuterol Inhaler [Ventolin Hfa 2 puff INHALATION RT-Q4H PRN 01/25/24 01/25/24 History Inhaler] Aspirin EC [Ecotrin Low Dose] 81 mg PO DAILY 01/25/24 01/25/24 History Brimonidine Tartrate [Alphagan P 1 drop BOTH EYES BID 01/25/24 01/25/24 History 0.2% Ophth Soln] Brinzolamide/Brimonidine Tart 1 drop BOTH EYES BID 01/25/24 01/25/24 History [Simbrinza 1%-0.2% Eye Drop] Codeine Phosphate/Guaifenesin 10 ml PO Q4H PRN 01/25/24 01/25/24 History [Codeine Phosphate/Guaifenesin 10-100 mg/5 ml] Dicyclomine [Bentyl] 20 mg PO HS 01/25/24 01/25/24 History Dutasteride 0.5 mg PO HS 01/25/24 01/25/24 History Ezetimibe [Zetia] 10 mg PO DAILY 01/25/24 01/25/24 History Fenofibrate [Lofibra] 160 mg PO HS 01/25/24 01/25/24 History Fluticasone/Vilanterol [Breo 1 puff INHALATION RT-DAILY 01/25/24 01/25/24 History Ellipta 100-25 Mcg Inhalr] Latanoprost [Latanoprost 0.005%] 1 drop BOTH EYES HS 01/25/24 01/25/24 History Metoprolol Succinate [Metoprolol 25 mg PO HS 01/25/24 01/25/24 History Succinate ER] Montelukast [Singulair] 10 mg PO HS 01/25/24 01/25/24 History Omeprazole 40 mg PO DAILY 01/25/24 01/25/24 History Ranolazine [Ranexa] 1,000 mg PO Q12HR 01/25/24 01/25/24 History Rosuvastatin Calcium [Crestor] 40 mg PO HS 01/25/24 01/25/24 History Tamsulosin [Flomax] 0.4 mg PO HS 01/25/24 01/25/24 History Ticagrelor [Brilinta] 90 mg PO BID 01/25/24 01/25/24 History Timolol 0.5% Ophth Soln [Timoptic 1 drop BOTH EYES DAILY 01/25/24 01/25/24 Hi story 0.5% Ophth Soln] Ubidecarenone [Coenzyme Q10] 100 mg PO DAILY 01/25/24 01/25/24 History clonazePAM 1.5 mg PO HS 01/25/24 01/25/24 History lisinopriL [Zestril] 2.5 mg PO HS 01/25/24 01/25/24 History traZODone HCL [Desyrel] 50 - 100 mg PO HS 01/25/24 01/25/24 History Allergies Allergy/AdvReac Type Severity Reaction Status Date / Time No Known Allergies Allergy Verified 01/25/24 20:59 Physical Exam Vitals: Vital Signs Temp Pulse Pulse Resp BP BP Pulse Ox 01/26/24 04:30 97.7 F 50 L 16 102/62 99 01/26/24 03:24 97.9 F 55 L 14 104/69 01/25/24 21:47 55 L 16 131/75 01/25/24 20:58 98.2 F 52 L 14 126/70 01/25/24 18:04 98.6 F 58 L 18 104/65 100 Intake and Output 01/25/24 01/26/24 01/26/24 22:59 06:59 14:59 Intake Total 0 Balance 0 Intake: Oral 0 Other: # Voids 1 Weight 68.039 kg 68.039 kg Results CBC & Chem 7: 01/25/24 18:22 01/25/24 18:22 Labs: Abnormal Lab Results - Last 24 Hours (Table) 01/25/24 01/25/24 01/26/24 Range/Units 18:22 18:22 04:46 Lymphocytes # 0.9 L (1.0-4.8) k/uL Sodium 128 L (137-145) mmol/L Chloride 96 L (98-107) mmol/L Glucose 124 H (74-99) mg/dL POC Glucose (mg/dL) 156 H (70-110) mg/dL Alkaline Phosphatase 23 L (38-126) U/L
[2024-01-26] MEDS: HEPARIN SODIUM,PORCINE 5,000 UNIT/ML 1 ML VIAL SQ SCH (16:28)
[2024-01-26] MEDS: ACETAMINOPHEN IV (For NPO) 1,000 MG in EMPTY BAG 1 BAG IVPB SCH (16:30)
[2024-01-26] MEDS ORDERED: PROPARACAINE 0.5% OPHTH DROPS 15 ML BTL BOTH EYES STA (19:30)
[2024-01-26] MEDS ORDERED: PHENYLEPHRINE 2.5% OPHTH DRP 2ML BOTH EYES SCH (19:30)
[2024-01-26] MEDS ORDERED: TROPICAMIDE 1% OPHTH DROPS 2 ML BTL BOTH EYES ONE (19:30)
[2024-01-26] MEDS ORDERED: ARTIFICIAL TEARS-HYPROMELLOSE DROPS 15 ML BTL BOTH EYES PRN (19:32)
[2024-01-26] MEDS ORDERED: DICYCLOMINE 20 MG TAB PO SCH (21:00)
[2024-01-26] MEDS ORDERED: clonazePAM 0.5 MG TAB PO SCH (21:00)
[2024-01-26] MEDS ORDERED: FENOFIBRATE 160 MG TAB PO SCH (21:00)
[2024-01-26] MEDS ORDERED: TAMSULOSIN 0.4 MG CAP.ER.24H PO SCH (21:00)
[2024-01-26] MEDS ORDERED: MONTELUKAST 10 MG TAB PO SCH (21:00)
[2024-01-26] MEDS ORDERED: FINASTERIDE 5 MG TAB PO SCH (21:00)
[2024-01-26] MEDS ORDERED: LATANOPROST 0.005% OPHTH DROPS 2.5 ML BTL BOTH EYES SCH (21:00)
[2024-01-26] MEDS ORDERED: METOPROLOL SUCCINATE (ER) 25 MG TAB.ER.24H PO SCH (21:00)
[2024-01-26] MEDS ORDERED: traZODone HCL 50 MG TAB PO SCH ×2 (21:00)
[2024-01-26] MEDS ORDERED: ATORVASTATIN 80 MG TAB PO SCH (21:00)
--- NOTE | 2024-02-11 10:11 | P.DS ---
Providers Date of admission: 01/26/24 02:38 Expected date of discharge: 01/26/24 Attending physician: Brian Odonnell Consults: 01/26/24 02:35 Consult Physician Urgent Consulting Provider: [facility] Consult Reason/Comments: Chest pain r/o ACS Do you want consulting provider notified?: Yes 01/26/24 05:02 Consult Physician Routine Consulting Provider: [facility] Consult Reason/Comments: dizziness and headache for a week, and left pupil enlargment Do you want consulting provider notified?: Yes 01/26/24 14:50 Consult Physician Urgent Consulting Provider: Sam Richardson Consult Reason/Comments: Acute eye pain, hx of glaucoma, r/o worsening Do you want consulting provider notified?: Yes Primary care physician: Chrissy Santso [facility] Course: Discharge diagnoses; New onset retro-orbital/temporal right-sided pain Brain MRI was negative for any acute intraorbital mass or abnormality Continue pain medications as needed Neurology consulted Chest pain, resolved Cardiology consulted: EKG and troponins not indicative of acute coronary syndrome Hypertension Continue home medications Hyperlipidemia Continue home medications Anxiety Continue clonazepam Dizziness, resolved Glaucoma Continue home medications Hospital course; Patient is 68-year-old male with a past medical history of hypertension, glaucoma, hyperlipidemia, and recent sinus infection. He states that about 5 weeks ago he developed a sinus infection and has been on and off antibiotics with no relief. He states that over the past week he has had pain behind his right eye and yesterday the pain became extremely strong and progressed into the left eye as well. He also notes that yesterday 01/24 after breakfast he started feeling dehydrated and lightheaded/dizzy. After few hours he decided to come to the emergency department. He states that prior to breakfast he had taken Cialis and is not sure if that contributed to it since he has taken in the past. He endorses a spinning feeling while sitting still. While in the emergency he says he started having chest pain into the left armpit. EKGs were noted to have sinus bradycardia and troponin x 2 was <0.012. Chest x-ray: No acute pulmonary process. Brain CT: No acute intracranial process, basilar tip aneurysm not excluded. CT angiogram head and neck: No significant vascular abnormality. EKG x 2: Sinus bradycardia. WBCs 4.1, hemoglobin 13.2, sodium 128, potassium 4.1, creatinine 1.05, troponin x 2 < 0.012. Urinalysis unremarkable. Afebrile, normotensive/mildly hypotensive with systolic [id number], bradycardic in the 50s, saturating well on room air. Patient was admitted to internal medicine service, neurology consulted, MRI brain was ordered. While in the hospital, patient decided to leave AGAINST MEDICAL ADVICE. Dictation was produced using [employer] dictation software. please excuse any grammatical, word or spelling errors. Patient Condition at Discharge: Fair Plan - Discharge Summary New Discharge Prescriptions: No Action lisinopriL [Zestril] 2.5 mg PO HS Metoprolol Succinate [Metoprolol Succinate ER] 25 mg PO HS Ezetimibe [Zetia] 10 mg PO DAILY Montelukast [Singulair] 10 mg PO HS Latanoprost [Latanoprost 0.005%] 1 drop BOTH EYES HS Rosuvastatin Calcium [Crestor] 40 mg PO HS Codeine Phosphate/Guaifenesin [Codeine Phosphate/Guaifenesin 10-100 mg/5 ml] 10 ml PO Q4H PRN PRN Reason: Cough Ranolazine [Ranexa] 1,000 mg PO Q12HR Ubidecarenone [Coenzyme Q10] 100 mg PO DAILY traZODone HCL [Desyrel] 50 - 100 mg PO HS Dicyclomine [Bentyl] 20 mg PO HS Acetaminophen-Codeine 300-30mg [Tylenol w/codeine #3] 1 tab PO Q6H PRN PRN Reason: Pain Omeprazole 40 mg PO DAILY Fenofibrate [Lofibra] 160 mg PO HS Ticagrelor [Brilinta] 90 mg PO BID Tamsulosin [Flomax] 0.4 mg PO HS Brimonidine Tartrate [Alphagan P 0.2% Ophth Soln] 1 drop BOTH EYES BID Brinzolamide/Brimonidine Tart [Simbrinza 1%-0.2% Eye Drop] 1 drop BOTH EYES BID Timolol 0.5% Ophth Soln [Timoptic 0.5% Ophth Soln] 1 drop BOTH EYES DAILY Dutasteride 0.5 mg PO HS clonazePAM 1.5 mg PO HS Albuterol Inhaler [Ventolin Hfa Inhaler] 2 puff INHALATION RT-Q4H PRN PRN Reason: cough/wheezing Fluticasone/Vilanterol [Breo Ellipta 100-25 Mcg Inhalr] 1 puff INHALATION RT- DAILY Aspirin EC [Ecotrin Low Dose] 81 mg PO DAILY Discharge Medication List Acetaminophen-Codeine 300-30mg [Tylenol w/codeine #3] 1 tab PO Q6H PRN 01/25/24 [History] Albuterol Inhaler [Ventolin Hfa Inhaler] 2 puff INHALATION RT-Q4H PRN 01/25/24 [History] Aspirin EC [Ecotrin Low Dose] 81 mg PO DAILY 01/25/24 [History] Brimonidine Tartrate [Alphagan P 0.2% Ophth Soln] 1 drop BOTH EYES BID 01/25/24 [History] Brinzolamide/Brimonidine Tart [Simbrinza 1%-0.2% Eye Drop] 1 drop BOTH EYES BID 01/25/24 [History] Codeine Phosphate/Guaifenesin [Codeine Phosphate/Guaifenesin 10-100 mg/5 ml] 10 ml PO Q4H PRN 01/25/24 [History] Dicyclomine [Bentyl] 20 mg PO HS 01/25/24 [History] Dutasteride 0.5 mg PO HS 01/25/24 [History] Ezetimibe [Zetia] 10 mg PO DAILY 01/25/24 [History] Fenofibrate [Lofibra] 160 mg PO HS 01/25/24 [History] Fluticasone/Vilanterol [Breo Ellipta 100-25 Mcg Inhalr] 1 puff INHALATION RT- DAILY 01/25/24 [History] Latanoprost [Latanoprost 0.005%] 1 drop BOTH EYES HS 01/25/24 [History] Metoprolol Succinate [Metoprolol Succinate ER] 25 mg PO HS 01/25/24 [History] Montelukast [Singulair] 10 mg PO HS 01/25/24 [History] Omeprazole 40 mg PO DAILY 01/25/24 [History] Ranolazine [Ranexa] 1,000 mg PO Q12HR 01/25/24 [History] Rosuvastatin Calcium [Crestor] 40 mg PO HS 01/25/24 [History] Tamsulosin [Flomax] 0.4 mg PO HS 01/25/24 [History] Ticagrelor [Brilinta] 90 mg PO BID 01/25/24 [History] Timolol 0.5% Ophth Soln [Timoptic 0.5% Ophth Soln] 1 drop BOTH EYES DAILY 01/25/24 [History] Ubidecarenone [Coenzyme Q10] 100 mg PO DAILY 01/25/24 [History] clonazePAM 1.5 mg PO HS 01/25/24 [History] lisinopriL [Zestril] 2.5 mg PO HS 01/25/24 [History] traZODone HCL [Desyrel] 50 - 100 mg PO HS 01/25/24 [History] Follow up Appointment(s)/Referral(s): Chrissy Santos DO [Primary Care Provider] - 1-2 days Discharge Disposition: LEFT AGAINST MEDICAL ADVICE
== END 2024-01-26 17:21 | disposition left against medical advice (07) ==
LOC: EC 17:55 → 6NMEDSUR 01-26 02:38
PROVIDERS: ADMIT Hospitalist; ATTEND Hospitalist
DX: R07.89 Other chest pain (principal); H40.9 Unspecified glaucoma; J44.89 Other specified chronic obstructive pulmonary disease; H21.562 Pupillary abnormality, left eye; I10 Essential (primary) hypertension; E78.5 Hyperlipidemia, unspecified; I25.10 Atherosclerotic heart disease of native coronary artery without angina pectoris; R42 Dizziness and giddiness; R53.1 Weakness; R00.1 Bradycardia, unspecified; I95.9 Hypotension, unspecified; F17.290 Nicotine dependence, other tobacco product, uncomplicated; F41.9 Anxiety disorder, unspecified; I25.2 Old myocardial infarction; Z79.82 Long term (current) use of aspirin; Z79.51 Long term (current) use of inhaled steroids; Z79.02 Long term (current) use of antithrombotics/antiplatelets; Z79.899 Other long term (current) drug therapy; Z11.52 Encounter for screening for COVID-19; Z11.59 Encounter for screening for other viral diseases; Z95.1 Presence of aortocoronary bypass graft; Z95.5 Presence of coronary angioplasty implant and graft
CPT/HCPCS: 36415; 70450; 70496; 70498; 70543; 71046; 80053; 81003; 83036; 83735; 84484; 85025; 85610; 85652; 85730; 86140; 87636; 93005; 94640; 94760; 96361; 96365; 96372; 96375; 96376; 99285

== ENCOUNTER → 2024-10-15 | Outpatient (CLI) | payer BC ==
[2024-10-15 15:05] LABS: African American GFR (CKD) 70 (>60 ml/min/1.73 sqM); Blood Urea Nitrogen 13 mg/dL (9-20); Non-African American GFR(CKD) 61 (>60 ml/min/1.73 sqM)
--- NOTE | 2024-10-15 18:53 | CT ---
EXAMINATION TYPE: CT angio abdomen pelvis DATE OF EXAM: 10/15/2024 5:21 PM COMPARISON: None. CLINICAL INDICATION: Male, 69 years old with history of K55.9 VASCULAR DISORDER INTESTINE, UNSPECIFIE D; PHH, difficulty digesting food x 1 year TECHNIQUE: CT angio abdomen pelvis Multiple thin slice sub-millimeter images were obtained before and after administration of contrast. 3-D reconstructed images and maximum intensity projection images were obtained on a separate works tation. CT angio abdomen pelvis CT Contrast: Contrast used:100 mL of Isovue 370 with IV Contrast, Oral contrast used: without Oral Contrast None CT DLP: 578.2 mGycm, Automated exposure control for dose reduction was used. FINDINGS: CTA Abdomen and pelvis: The abdominal aorta does not demonstrate aneurysmal dilatation. Small amount of Atherosclerotic plaque is identified within the abdominal aorta. The origins of the superior mese nteric artery, renal arteries, inferior mesenteric artery, and celiac axis are patent. The iliac ves sels are normal in morphology LOWER CHEST: No evidence of focal consolidation, pneumothorax or pleural effusion. LIVER: Unremarkable GALLBLADDER AND BILE DUCTS: The gallbladder is surgically absent. PANCREAS: Unremarkable. SPLEEN: Unremarkable. ADRENAL GLANDS: Unremarkable. KIDNEYS AND URETERS: No evidence of hydronephrosis or obstructing renal calculus. The ureters are unr emarkable. Fat-containing left renal cortical mass measuring 24 x 17 mm. PELVIS BLADDER: Unremarkable REPRODUCTIVE: Unremarkable. ABDOMEN & PELVIS STOMACH AND BOWEL: No evidence of bowel obstruction. Scattered colonic diverticula. The appendix is n ormal. PERITONEUM: No evidence of pneumoperitoneum or free fluid. VASCULATURE: No evidence of aortic aneurysm. MUSCULOSKELETAL: No acute osseous abnormalities LYMPH NODES: No gross evidence for lymphadenopathy. SOFT TISSUE/ABDOMINAL WALL: Fat-containing umbilical hernia. Bilateral fat-containing inguinal hernia s. IMPRESSION: 1. No evidence of vascular occlusion. The mesenteric arterial vasculature appears within normal limi ts. 2. Atherosclerotic disease involving abdominal aorta and lower extremity vasculature. 3. Colonic diverticulosis. 4. 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 [facility], , 10/15/2024 6:51 PM
== END | disposition home or self-care (01) ==
LOC: RADCTMAIN 14:05
PROVIDERS: ATTEND Family Medicine
DX: K55.9 Vascular disorder of intestine, unspecified (principal); I70.0 Atherosclerosis of aorta; K57.30 Diverticulosis of large intestine without perforation or abscess without bleeding; D17.71 Benign lipomatous neoplasm of kidney
CPT/HCPCS: 82565; 84520; 36415; 74174; Q9967